=== PATIENT | female | born 1970 | race Hispanic/Latino ===

== ENCOUNTER 2018-03-28 14:46 | Emergency (ER) | payer OTHER ==
[~2018-03-28] VITALS: Ht 165.1 cm; Wt 89.9 kg
[2018-03-28] MEDS ORDERED: SKELAXIN800 MG PO (18:22)
[2018-03-28 18:41] VITALS: BP 120/72
== END 2018-03-28 18:42 | disposition home or self-care (01) ==
LOC: EME 14:46
DX: M62.838 Other muscle spasm (principal); M25.512 Pain in left shoulder; M25.511 Pain in right shoulder; E11.9 Type 2 diabetes mellitus without complications
CPT/HCPCS: 72040; 73030; 99281; 99283; J1885